=== PATIENT | male | born 1950 | race Caucasian/White ===

== ENCOUNTER 2021-11-10 12:15 | Observation (INO) | payer OTHER ==
--- OUTSIDE RECORDS SUMMARY | 2021-11-10 12:17 | XMS REPORT | Continuity of Care Document ---
:1950 Author Organization [facility] t Address [address] [place] [address] Care Team Providers Name Role Phone Carlos JONES Attending Clinician CARLOS Attending Clinician Unavailable CARLOS Admitting Clinician Unavailable Payers Payer Name Policy Type Policy Number Effective Date Expiration Date S ource Problems Condition Condition Condition Status Onset Resolution Last Treating Co mments Source Name Details Category Date Date Treatment Clinician Date Encounter Encounter Disease Active [facility] [facility] for for 05-26 follow-up follow-up 00:00: of surveillan surveillan 00 Me dicin ce of ce of e prostate prostate cancer cancer Malignant Malignant Disease Active [facility] [place] neoplasm neoplasm 04-13 Colleg e of of 00[facility]00: of prostate prostate 00 [facility] n [facility] e Prostate Prostate Disease Active [facility] cancer cancer 03-21 [facility] 00[facility]: of 00 Medicin e Allergies, Adverse Reactions, Alerts Allergy Allergy Status Severity Reaction(s) Onset Inactive Treating Comm ents Source Name Type Date Date Clinician Hydrocod Propensi Active Nausea And [employer] [facility] one-Acet ty to Vomiting 04-03 Colleg e aminophe adverse 00:00: of n reaction 00 Medicin s to e drug Tramadol Propensi Active Nausea [facility] [employer] [facility] ty to Vomiting 04-03 College adverse 00:00: of reaction 00 Medicin s to e drug Social History Social Habit Start Date Stop Date Quantity Comments Source Exposure to Not sure [facility] e SARS-CoV-2 of Medicine (event) Tobacco use and 2020-11-28 2020-11-28 Never used [facility] [employer] exposure 00:00:00 00:00:00 of Medicine Alcohol intake 2020-11-28 2020-11-28 Current [facility] [employer] 00:00:00 00:00:00 non-drinker of of Medicin e alcohol (finding) Sex Ass[birth year] M [facility] [employer] 00:00:00 00:00:00 of Medicine Smoking Status Start Date Stop Date Source Never smoker [facility] o f Medicine Medications Ordered Filled Start Stop Current Ordering Indication Dosage Frequency Signature Comments Components Source Medication Medication Date Date Medication? Clinician (SIG) Name Name Coenzyme Yes 200mg Take 200 [facility] [facility] Q10 200 MG 3-10 mg by [employer] CAPS 17:16: mouth. of 18 Medicin e pravastatin Yes [id number] 20mg Take 20 mg [facility] (PRAVACHOL) 3-10 by mouth [place] 20 MG 17:16: daily. of tablet 18 Medicin e Coenzyme 2020- No 200mg Take 200 [facility] [place] [facility] Q10 200 MG 3-10 03-10 mg by [employer] CAPS 17:16: 00:00 mouth. of 13 :00 Medicin e Coenzyme 2020- No [id number] Take by [facility] Q10 (CO 3-10 03-10 mouth. College Q-10) 200 17:15: 00:00 of MG CAPS 49 :00 Medicin e etodolac 2020- No TK 1 T PO [facility] (LODINE) 02-06 BID [place] 500 MG 00:00: 00:00 of tablet 00 :00 Medicin e Vital Signs Vital Name Observation Time Observation Value Comments Source Systolic blood 2020-11-28 17:13:00 134 mm[Hg] [facility] pressure Medicine Diastolic blood 2020-11-28 17:13:00 76 mm[Hg] [facility] pressure Medicine Heart rate 2020-11-28 17:13:00 57 /min [facility] Respiratory rate 2020-11-28 17:13:00 18 /min [facility] Body height 2020-11-28 17:13:00 185.4 cm [facility] Body weight 2020-11-28 17:13:00 89.359 kg [facility] BMI 2020-11-28 17:13:00 25.99 kg/m2 [employer] [facility] Procedures Procedure Date / Time Performed Performing Clinician Sour e POCT URINALYSIS 2020-11-28 00:00:00 Geo Baez [facility] [place] of DIPSTICK Medicine Plan of Care Planned Activity Planned Date Details Comments Source Future Scheduled PSA ULTRASENSITIVE Ordered: [employer] Test [code = 18887-1] 11/28/2020 of Medicine Future Scheduled Screening for [facility] [employer] [facility] Test malignant neoplasm of of Med icine colon (procedure) [code = 651814152] Future Scheduled TETANUS SHOT (ADULT) [facility] [employer] Test [code = TETANUS SHOT of Medi cine (ADULT)] Future Scheduled BMI FOLLOW UP PLAN [employer] Test [code = BMI FOLLOW UP of Med icine PLAN] Future Scheduled Hepatitis C screening [employer] Test (procedure) [code = of Medic ine 749255365] Future Scheduled ZOSTER VACCINE (1 of [facility] [employer] Test 2) [code = ZOSTER of Medicin e VACCINE (1 of 2)] Future Scheduled FALL SCREEN [code = [facility] [employer] Test FALL SCREEN] of Medicine Future Scheduled PNEUMOVAX >=65 [facility] [employer] Test (PPSV23) [code = of Medicine PNEUMOVAX >=65 (PPSV23)] Future Scheduled MEDICARE AWV (Initial) [employer] Test [code = MEDICARE AWV of Medi cine (Initial)] Future Scheduled FLU VACCINE > 6 MONTHS [employer] Test [code = FLU VACCINE > of Med icine 6 MONTHS] Encounters Start End Encounter Admission Attending Care Care Encounter Source Date/Time Date/Time Type Type Clinicians Facility Department ID 2020-11-28 2020-11-28 Office ELIZABETH Baez [id number] [facility] 10:50:41 11:05:41 Visit Geo AMBULATOR [id number] College Y [id number] Medi chio 300 e Results Test Description Test Time Test Comments Results Result Comments Source POCT URINALYSIS DIPSTICK 2020-11-28 00:00:00 Test Item Value Reference Range Interpretation Comme nts COLOR UA (test code = 5778-6) Yellow YELLOW/STRAW CLARITY UA (test code = 19999-9) Clear CLEAR GLUCOSE UA (test code = 5792-7) Negative NEGATIVE BILIRUBIN UA (test code = 5770-3) Negative NEGATIVE KETONES UA (test code = 19345-4) Negative NEGATIVE SPECIFIC GRAVITY UA (test code = 5811-5) 1.005-1.035 BLOOD UA (test code = 5794-3) Negative NEGATIVE PH UA (test code = 5803-2) 5.0-9.0 PROTEIN UA (test code = 5804-0) Trace NEGATIVE UROBILINOGEN UA (test code = 5818-0) 0.02 E.U/DL NORMAL MG/DL LEUKOCYTE ESTERASE UA (test code = 5799-2) Negative NEGATIVE NITRITE UA (test code = 5802-4) Negative NEGATIVE REDUCING SUBSTANCES URINE (test code = 35611-2) [id number] 18:27:00Surgical Pathology Report Case: [id number] Authorizing Provider: Geo Baez MD Collected: 04/13/2017 1432 Ordering Location: [facility] Received: 04/13/2017 1827 SERVICES Pathologist: Trenton Caldwell MD Specimens: A) -Lymph Node, PERIPROSTATIC LYMPH NODES B) - Soft Tissue, Other, LEFT LATERAL PROSTATE MARGIN C) - Vas De ferens, Left, LEFT VAS DEFERENS D) - Lymph Node, LEFT EXTERNAL ILIAC LYMPH NODES E) - Lymph Node,left obturator F) - Lymph Node, left hypogastric G) - Lymph Node, Right vas deferens H) - Lymph Node, Right external iliac lymph node I) - Lymph Node, Right obturator J) - Lymph Node, Right hypogastric K) - Prostate, prostate and seminal vesicle A. SOFT TISSUE, RECEIVED "PERIPROSTATIC LYMPH NODES", EXCISION: - BENIGN FIBROADIPOSE TISSUE - NO LYMPHOID TISSUE IDENTIFIEDB. PROSTATE, LEFT LATERAL MARGIN, BIOPSY: - BENIGN FIBROCONNECTIVE TISSUE - NO PROSTATIC GLANDS OR MALIGNANCYSEENC. VAS DEFERENS, LEFT, VASECTOMY: - NO PATHOLOGIC CHANGED. LYMPH NODE, LEFT EXTERNAL ILIAC, EXCISION: - ONE LYMPH NODE, NEGATIVE FOR MALIGNANCY (0/1)E. LYMPH NODE, LEFT OBTURATOR, EXCISION: - ONE LYMPH NODE, NEGATIVE FOR MALIGNANCY (0/1)F. SOFT TISSUE, RECEIVED "LEFT HYPOGASTRIC LYMPH NODES", EXCISION: - BENIGN FIBROADIPOSE TISSUE - NO LYMPHOID TISSUE IDENTIFIEDG. VAS DEFERENS, RIGHT, VASECTOMY: - NO PATHOLOGIC CHANGEH. LYMPH NODES, RIGHT EXTERNAL ILIAC, DISSECTION: - TWO LYMPH NODES, NEGATIVE FOR MALIGNANCY (0/2)I. LYMPH NODES, RIGHT OBTURATOR, DISSECTION: - THREE LYMPH NODES, NEGATIVE FOR MALIGNANCY (0/3)J. SOFT TISSUE, RECEIVED "RIGHT HYPOGASTRIC LYMPH NODES", EXCISION: - BENIGN FIBROADIPOSE TISSUE - NO LYMPHOID TISSUE IDENTIFIEDK. 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 About 30% of this tumor is Jonh pattern 4. There is a smaller a better differentiated tumor in the left peripheralzone as well. Good preservation of the neurovascular bundles is noted from examination of the surgical specimen.PROSTATE GLAND: Radical Prostatectomy (Prostate Res - All Specimens) Specimen Site: Prostatic structure Tumor Site: Prostatic structureSPECIMEN Procedure: Radical prostatectomy Prostate Size: Size (cm): 3.4 cm Size (cm): 4.5 cm Size (cm): 3 cm Prostate Weight: Specify Weight (g): 43 Lymph Node Sampling: Pelvic lymph node dissectionTUMOR Histologic Type: Adenocarcinoma (acinar, not otherwise specified) [place] Pattern: Jonh pattern Primary Pattern: Grade 3 Secondary Pattern: Grade 4 Tertiary Pattern: Not applicable Total Jonh Score: 7 Tumor Quantitation: Proportion (percentage) of Prostate Involved by Tumor Specify (%): 10 Tumor Quantitation: Tumor size (dominant nodule, if present) Greatest Dimension (mm): 15 mm Extraprostatic Extension: Not identified Seminal Vesicle Invasion (invasion of muscular wall required): Not identified Lymph-Vascular Invasion: Not Identified Perineural Invasion: Present TreatmentEffect: Not identifiedMARGINS Margins: Margins uninvolved by invasive carcinomaLYMPH NODESRegional Lymph Nodes: Number of Lymph Nodes Examined: Specify number: 7 Number of Lymph Nodes Involved: None identifiedSTAGE (pTNM) Primary Tumor (pT): +pT2c: Bilateral diseaseRegional Lymph Nodes (pN): pN0: No regional lymph node metastasis Distant Metastasis (pM): Not applicableADDITIONAL FINDINGS Additional Pathologic Findings: Nodular prostatic ermoavqwgnf22591 x2, 30656 x4, 57467 x4, 41761, 96172Jcecswja cancerA. Periprostatic lymph node; B. Left lateral prostate margin; C. Left vas deferens; D. Left external iliac lymph node; E. Left obturator lymph node; F. Left hypogastric lymph node; G. Right vas deferens; H. Right external iliac lymph node; I. Rightobturator lymph node; J. Right hypogastric lymph node; K. Prostate and seminal vesicleSpecimen A: Received fresh labeled "lymph node", description "periprostatic lymph node" are two irregular yellow-aquino portions of adipose tissue measuring 3.5 x 3.0 x 1.0 cm in aggregate. Sectioning reveals no distinct lymph node. The specimen is entirely submitted in cassette A1-A3. DB/plSpecimen B: Received fresh without formalin labeled with the patient's name, medical record number, [id number], and consists of twotiny aquino-pink soft tissue pieces. Entirely submitted in B1FS. SD/plSpecimen C: Received fresh labeled "vas deferens, left" is a 1.5 cm in length x 0.2 cm in diameter diaz-white cylindrical tubular structure. The specimen is entirely submitted in cassette C1. Specimen D: Received fresh labeled "left external iliac lymph node" is a 4.0 x 1.5 x 0.2 cm pink-aquino to yellow irregular lymph node with adherent adipose tissue. The specimen is serially sectioned and entirely submitted in cassettes D1-D4. Specimen E: Received fresh labeled "lymph node", description "left obturator" is a 3.0 x 2.5 x 1.0 cm aggregate of yellow-aquino adipose tissue. Sectioning reveals no distinct lymph node. The specimen is entirely submitted in cassettes E1-E3. Specimen F: Received fresh labeled "lymph node", description "left hypogastric" is a 3.3 x 2.2 x 1.0 cm yellow-aquino irregular portion of adipose tissue. Sectioning reveals no distinct lymph nodes. The specimen is entirely submitted in cassettes F1-f2. Specimen G: Received fresh labeled "right vas deferens" is a 2.3 cm in length x 0.3 cm in diameter diaz-white cylindrical tubular structure. The specimen is entirely submitted in cassette G1.Specimen H: Received fresh labeled "lymph node", description "right external iliac lymph node" is a 4.5 x 3.3 x 1.0 cm aggregate ofyellow-aquino adipose tissue. Sectioning reveals two pink-aquino to yellow possible lymph nodes measuring 2.0 cm and 3.0 cm in greatest dimension. The specimen is entirely submitted as follows: H1, one bisected lymph node; H2-H3, one bisected lymph node; H4-H5, remainder of specimen.Specimen I: Received fresh labeled "lymph node", description "right obturator" is a 5.0 x 3.5 x 1.0 cm yellow-aquino irregular portion of adipose tissue. Sectioning reveals a 3.5 x 1.0 x 0.5 cm pink-aquino to yellow irregular lymph node. The specimen is entirely submitted as follows: I1-I2, one bisected lymph node; I3-I6, remainderof specimen. Specimen J: Received fresh labeled "lymph node", description "right hypogastric" is a 3.5 x 3.0 x 0.5 cm yellow-aquino irregular portion of adipose tissue. Sectioning reveals no distinct lymph node. The specimen is entirely submitted in cassettes J1-J2. DB/plSpecimen K: Received fresh labeled "prostate" is a radical prostatectomy specimen with attached bilateral seminal vesicles and vasa deferentia. The prostate weighs 43 gm and measures 3.4 cm apex to base, 4.5 cm transversely and 3.0 cm anterior to posterior. The right and left seminal vesicles measure 4.5 x 1.4 x 0.5 cm and 3.2 x 1.0 x0.5 cm respectively. The right and left vasa deferentia measure 4.0 cm and 5.0 Cm in length respectively and 0.5 cm in diameter.The capsular surface of the prostate is purple-aquino to red, dusky, focallyragged.Ink code: Right- black, left-blue.The prostate is serially sectioned from apex to base into 9 s lices to reveal pink-aquino to diaz-white, homogeneous, focally nodular prostatic parenchyma throughout. No discrete masses are identified. The prostate gland is entirely submitted.Sectioning of the seminal vesicles reveals a pink-aquino unremarkable cut surface.Section code: K1, prostate apex; K2, prostatebase; K3- K7, prostate slices sequentially submitted progressing from apex to base; K8, right and left seminal vesicles; K9, seminal vesicle tips. DB/ewB1FS, LEFT LATERAL MARGIN, PROSTATE: - NO GLAND SEEN - NO TUMOR SEEN - THIS WAS COMMUNICATED TO OR18 BY DR. THORNE ON 04/06/2017 AT 6:40 P.M. A-K. Performed. BASIC METABOLIC [id number] 06:32:00 Test Item Value Reference Range Interpretation Comments SODIUM (BEAKER) 137 meq/L 136-145 (test code = 381) POTASSIUM (BEAKER) 4.2 meq/L 3.5-5.1 (test code = 379) CHLORIDE (BEAKER) 106 meq/L 98-107 (test code = 382) CO2 (BEAKER) (test 25 meq/L 22-29 code = 355) BLOOD UREA NITROGEN 11 mg/dL 7-21 (BEAKER) (test code = 354) CREATININE (BEAKER) 0.69 mg/dL 0.57-1.25 (test code = 358) GLUCOSE RANDOM 118 mg/dL 70-105 H (BEAKER) (test code = 652) CALCIUM (BEAKER) 7.8 mg/dL 8.4-10.2 L (test code = 697) EGFR (BEAKER) (test 114 mL/min/1.73 ESTIM ATED GFR IS code = 1092) sq m NOT ACCURATE CREATININE CLEARANCE IN PREDICTING GLOMERULAR FILTRATION RATE . ESTIMATED GFR I S NOT APPLICABLE FOR DIALYSIS PATIEN TS. CREATININE, BODY [id number] 06:09:00 Test Item Value Reference Range Interpretation Comments CREATININE FLUID (BEAKER) (test 0.68 mg/dL code = 677) Reference Range: No Normals Assay performance has not been validated for this type of specimen.CBC W/PLT COUNT & AUTO [id number] 06:02:00 Test Item Value Reference Range Interpretation Comments WHITE BLOOD CELL COUNT (BEAKER) 9.9 K/ L 3.5-10.5 (test code = 775) RED BLOOD CELL COUNT (BEAKER) 3.80 M/ L 4.63-6.08 L (test code = 761) HEMOGLOBIN (BEAKER) (test code = 12.1 GM/DL 13.7-17.5 L 410) HEMATOCRIT (BEAKER) (test code = 36.4 % 40.1-51.0 L 411) MEAN CORPUSCULAR VOLUME (BEAKER) 95.8 fL 79.0-92.2 H (test code = 753) MEAN CORPUSCULAR HEMOGLOBIN 31.8 pg 25.7-32.2 (BEAKER) (test code = 751) MEAN CORPUSCULAR HEMOGLOBIN CONC 33.2 GM/DL 32.3-36.5 (BEAKER) (test code = 752) RED CELL DISTRIBUTION WIDTH 13.1 % 11.6-14.4 (BEAKER) (test code = 412) PLATELET COUNT (BEAKER) (test 164 K/CU MM 150-450 code = 756) MEAN PLATELET VOLUME (BEAKER) 9.2 fL 9.4-12.4 L (test code = 754) NUCLEATED RED BLOOD CELLS 0 /100 WBC 0-0 (BEAKER) (test code = 413) NEUTROPHILS RELATIVE PERCENT 85 % (BEAKER) (test code = 429) LYMPHOCYTES RELATIVE PERCENT 8 % (BEAKER) (test code = 430) MONOCYTES RELATIVE PERCENT 7 % (BEAKER) (test code = 431) EOSINOPHILS RELATIVE PERCENT 0 % (BEAKER) (test code = 432) BASOPHILS RELATIVE PERCENT 0 % (BEAKER) (test code = 437) NEUTROPHILS ABSOLUTE COUNT 8.37 K/ L 1.78-5.38 H (BEAKER) (test code = 670) LYMPHOCYTES ABSOLUTE COUNT 0.78 K/ L 1.32-3.57 L (BEAKER) (test code = 414) MONOCYTES ABSOLUTE COUNT (BEAKER) 0.64 K/ L 0.30-0.82 (test code = 415) EOSINOPHILS ABSOLUTE COUNT 0.02 K/ L 0.04-0.54 L (BEAKER) (test code = 416) BASOPHILS ABSOLUTE COUNT (BEAKER) 0.02 K/ L 0.01-0.08 (test code = 417) IMMATURE GRANULOCYTES-RELATIVE 0 % 0-1 PERCENT (BEAKER) (test code = 2801) BASIC METABOLIC [id number] 02:30:00 Test Item Value Reference Range Interpretation Comments SODIUM (BEAKER) 138 meq/L 136-145 (test code = 381) POTASSIUM (BEAKER) 4.5 meq/L 3.5-5.1 (test code = 379) CHLORIDE (BEAKER) 109 meq/L 98-107 H (test code = 382) CO2 (BEAKER) (test 22 meq/L 22-29 code = 355) BLOOD UREA NITROGEN 18 mg/dL 7-21 (BEAKER) (test code = 354) CREATININE (BEAKER) 0.85 mg/dL 0.57-1.25 (test code = 358) GLUCOSE RANDOM 159 mg/dL 70-105 H (BEAKER) (test code = 652) CALCIUM (BEAKER) 7.6 mg/dL 8.4-10.2 L (test code = 697) EGFR (BEAKER) (test 90 mL/min/1.73 ESTIMA ILENE GFR IS code = 1092) sq m NOT ACCURATE CREATININE CLEARANCE IN PREDICTING GLOMERULAR FILTRATION RATE . ESTIMATED GFR I S NOT APPLICABLE FOR DIALYSIS PATIEN TS. [facility] [id number] 01:42:00 Test Item Value Reference Range Interpretation Comments HEMOGLOBIN (BEAKER) (test code = 11.6 GM/DL 13.7-17.5 L 410) HEMATOCRIT (BEAKER) (test code = 34.8 % 40.1-51.0 L 411) SODIUM NA-STAT [id number] 19:29:00 Test Item Value Reference Range Interpretation Comments SODIUM (BEAKER) (test code = 381) 139 meq/L 135-148 POTASSIUM-STAT [id number] 19:29:00 Test Item Value Reference Range Interpretation Comments POTASSIUM (BEAKER) (test code = 3.9 meq/L 3.6-5.5 379) BLOOD GAS, [id number] 19:29:00 Test Item Value Reference Range Interpretation Comments PH ARTERIAL (BEAKER) (test code = 7.32 7.35-7.45 L 383) PCO2 ARTERIAL (BEAKER) (test code 45 mmHg 35-45 = 384) PO2 ARTERIAL (BEAKER) (test code 194 mmHg 80-90 H = 385) O2 SATURATION ARTERIAL (BEAKER) 99.2 % 96.0-97.0 H (test code = 386) HCO3 ARTERIAL (BEAKER) (test code 23 mmol/L 21-29 = 388) BASE EXCESS ARTERIAL (BEAKER) -3.7 mmol/L -2.0-3.0 L (test code = 387) PATIENT TEMPERATURE (BEAKER) 36.6 C (test code = 1818) FIO2 (BEAKER) (test code = 1819) 50.0 % GLUCOSE-STAT [id number] 19:29:00 Test Item Value Reference Range Interpretation Comments GLUCOSE RANDOM (BEAKER) (test code 167 mg/dL 70-110 H = 652) HGB/HCT (H&H) - STAT [id number] 19:29:00 Test Item Value Reference Range Interpretation Comments HEMOGLOBIN (BEAKER) (test code = 11.7 g/dL 13.0-16.8 L 410) HEMATOCRIT (BEAKER) (test code = 34.0 % 40.0-50.0 L 411) URINALYSIS W/ [id number] 11:39:00 Test Item Value Reference Range Interpretation Comments COLOR (BEAKER) (test code Yellow = 470) CLARITY (BEAKER) (test Clear code = 469) SPECIFIC GRAVITY UA 1.011 1.001-1.035 (BEAKER) (test code = 468) PH UA (BEAKER) (test code 7.0 5.0-8.0 = 467) PROTEIN UA (BEAKER) (test Negative Negative code = 464) GLUCOSE UA (BEAKER) (test Negative Negative code = 365) KETONES UA (BEAKER) (test Negative Negative code = 371) BILIRUBIN UA (BEAKER) Negative Negative (test code = 462) BLOOD UA (BEAKER) (test Negative Negative code = 461) NITRITE UA (BEAKER) (test Negative Negative code = 465) LEUKOCYTE ESTERASE UA Negative Negative (BEAKER) (test code = 466) UROBILINOGEN UA (BEAKER) 0.2 mg/dL 0.2-1.0 (test code = 463) RBC UA (BEAKER) (test code < /HPF = 519) WBC UA (BEAKER) (test code 1 /HPF = 520) SOURCE(BEAKER) (test code Urine, Clean Catch = 9937) PLATELET [id number] 10:54:00 Test Item Value Reference Range Interpretation Comments PLATELET COUNT (BEAKER) (test 195 K/CU MM 150-450 code = 756) [id number] 16:26:00 Test Item Value Reference Range Interpretation Comments HEMOGLOBIN (BEAKER) (test code = 13.6 GM/DL 13.0-16.8 410) PLATELET [id number] 16:26:00 Test Item Value Reference Range Interpretation Comments PLATELET COUNT (BEAKER) (test 202 K/CU MM 150-430 code = 756)
[2021-11-10 12:53] LABS: Absolute Lymphocytes (CBC) 0.9 K/uL (0.7-4.9); Hematocrit 42.9 % (39.6-49.0); Lymphocytes % 25.6 % (15.3-44.8); MPV 7.9 fL (7.6-11.3); RBC Red Blood Cell Count 4.52 M/uL (4.33-5.43)
[2021-11-10 12:54] LABS: Protime INR 1.03
--- NOTE | 2021-11-10 13:15 | RAD REPORT ---
EXAM DESCRIPTION: CT - Head Brain Wo Cont - 11/10/2021 12:55 pm CLINICAL HISTORY: Dizziness COMPARISON: None TECHNIQUE: Computed axial tomography of the head was obtained. IV contrast was not requested. All CT scans are performed using dose optimization technique as appropriate and may include automated exposure control or mA/KV adjustment according to patient size. FINDINGS: An intracranial bleed is not seen . The ventricles are normal in caliber. No extra-axial fluid collection is noted. Fluid within the sinuses/ mastoids is not seen. IMPRESSION: No acute intracranial abnormality is seen. If patient's symptoms persist MRI of the bra in would be recommended.
--- NOTE | 2021-11-10 13:21 | RAD REPORT ---
EXAM DESCRIPTION: Janel Single View11/10/2021 1:07 pm CLINICAL HISTORY: Dizziness COMPARISON: 2020 FINDINGS: Lungs are hyperaerated. The lungs appear clear of acute infiltrate. The heart is normal size IMPRESSION: No acute abnormalities displayed
[2021-11-10 13:22] LABS: Albumin 3.7 g/dL (3.4-5.0); Bilirubin Direct 0.2 mg/dL (0-0.2); Bilirubin Total 0.9 mg/dL (0.2-1.0); Potassium 3.9 mmol/L (3.5-5.1); Protein, Total 7.1 g/dL (6.4-8.2)
[2021-11-10] MEDS ORDERED: HEPARIN/D5W 25,000 UNIT/500 ML BAG IV ONE (15:06)
[2021-11-10] MEDS ORDERED: HEPARIN 5000 UNIT/ML 1 ML VIAL ONE (15:06)
--- NOTE | 2021-11-10 15:30 | EDPHYS ---
Physician Documentation [facility] Name: Ag Burnham Age: 71 yrs Sex: Male : 1950 Arrival Date: 11/10/2021 Time: 12:32 Bed 18 Private MD: ED Physician Dominik Edwards HPI: 11/10 12:46 This 71 yrs old Male presents to ER via EMS with complaints of dizziness. pm1 12:46 The patient has experienced near-syncope, felt dizzy, light headed. Onset: The pm1 symptoms/episode began/occurred just prior to arrival, 1 hour prior to arrival. Duration: This was a single episode, that lasted 1 hour(s). Context: occurred Sabianism, occurred while the patient was standing, Just prior to the episode the patient experienced no apparent symptoms. Associated injury: The patient did not suffer any apparent associated injury. Associated signs and symptoms: Pertinent positives: Nausea with vomiting x 1. Diaphoresis on EMS arrival, Pertinent negatives: chest pain, headache, shortness of breath. Current symptoms: Currently, the patient is not experiencing any symptoms, the patient feels back to baseline, improved with lying down and worsened with change in position. The patient has not experienced similar symptoms in the past. The patient has not recently seen a physician, the patient's primary care provider is Dr. Husain. 12:46 Patient given aspirin and Phenergan in route. pm1 Historical: - Allergies: 12:59 No Known Allergies; lr4 - Home Meds: 12:59 pravastatin 20 mg oral tab 1 tab once daily [Active]; lr4 - PMHx: 12:59 Hypercholesterolemia; lr4 - PSHx: 12:59 None; lr4 - Immunization history:: Adult Immunizations not up to date, Client reports receiving the 2nd dose of the Covid vaccine, Date received: July 2021 booster covid shot. - Social history:: Smoking status: Patient denies any tobacco usage or history of. - Code Status:: Full code. ROS: 12:46 Constitutional: Negative for fever, chills, and weight loss, Cardiovascular: Negative pm1 for chest pain, palpitations, and edema, Respiratory: Negative for shortness of breath, cough, wheezing, and pleuritic chest pain. 12:46 Back: Negative for injury and pain, MS/Extremity: Negative for injury and deformity, Skin: Negative for injury, rash, and discoloration. 12:46 Abdomen/GI: Positive for nausea and vomiting, Negative for abdominal pain, diarrhea. 12:46 Neuro: Positive for dizziness, Negative for headache, numbness, tingling, weakness. 12:46 All other systems are negative. Exam: 12:46 Abdomen/GI: Exam negative for acute changes, Palpation: abdomen is soft and non-tender, pm1 in all quadrants. 12:46 Constitutional: This is a well developed, well nourished patient who is awake, alert, and in no acute distress. Head/Face: Normocephalic, atraumatic. 12:46 Skin: Warm, dry with normal turgor. Normal color with no rashes, no lesions, and no evidence of cellulitis. MS/ Extremity: Pulses equal, no cyanosis. Neurovascular intact. Full, normal range of motion. 12:46 Eyes: Exam is negative for acute changes, Periorbital structures: appear normal, Extraocular movements: no acute changes, Conjunctiva: no acute changes, no injection. 12:46 ENT: Mouth: Lips: normal, moist, Oral mucosa: normal, pink and intact, moist. 12:46 Chest/axilla: Exam negative for acute changes. 12:46 Cardiovascular: Rate: bradycardic, Rhythm: regular, Pulses: no pulse deficits are appreciated, Heart sounds: normal, normal S1and S2, Edema: is not appreciated. 12:46 Respiratory: Exam negative for acute changes, respiratory distress, shortness of breath, Breath sounds: are clear throughout. 12:46 Neuro: Orientation: is normal, Mentation: is normal, Cranial nerves: CN II- XII are normal as tested, Cerebellar function: normal finger to nose testing, heel to hermosillo testing is normal, Motor: moves all fours, strength is 5/5 in all extremities, Sensation: no obvious gross deficits. Vital Signs: 12:30 BP 141 / 84; Pulse 61; Resp 16; Temp 97.9(O); Pulse Ox 99% on R/A; Weight 83.01 kg; lr4 Height 6 ft. 0 in. (182.88 cm); Pain 0/10; 12:30 BP 136 / 83 Supine; Pulse 60; Resp 16; Pulse Ox 98% on R/A; lr4 12:33 BP 140 / 105 Sitting; Pulse 61; Pulse Ox 98% on R/A; lr4 12:37 BP 143 / 74 Standing; Pulse 72; Resp 17; Pulse Ox 100% on R/A; lr4 13:20 BP 126 / 74; Pulse 58; Resp 14; Pulse Ox 58% ; lr4 15:38 BP 128 / 76; Pulse 59; Resp 14; Pulse Ox 98% ; ww 12:30 Body Mass Index 24.82 (83.01 kg, 182.88 cm) lr4 Cassy Coma Score: 12:30 Eye Response: spontaneous(4). Verbal Response: oriented(5). Motor Response: obeys lr4 commands(6). Total: 15. MDM: 12:38 Patient medically screened. pm1 14:34 Data reviewed: vital signs. Data interpreted: Pulse oximetry: on room air is 100 %. pm1 Interpretation: normal. Counseling: I had a detailed discussion with the patient and/or guardian regarding: the historical points, exam findings, and any diagnostic results supporting the discharge/admit diagnosis, lab results, radiology results, the need for further work-up and treatment in the hospital. 14:47 Physician consultation: Chapin Husain MD regarding admission, patient's condition, would like pm1 consultation with Dr. Welsh, would like medications started, heparin. 15:07 Physician consultation: Jayro Welsh MD regarding consult, patient's condition, and pm1 will see patient tomorrow, would like further tests performed, carotid doppler studies, echocardiogram, agrees with heparin drip. 15:12 Physician consultation: Chapin Husain MD regarding consultation with Dr. Welsh. Dr. Husain pm1 would like repeat troponin now and to be called back with the results. 16:57 ED course: Left message with Dr Husain for repeat troponin result. pm1 17:35 ED course: Rodrigue updated on repeat troponin and he would like troponin repeat at 2000 pm1 today and 0500 tomorrow. 11/10 12:39 Order name: Basic Metabolic Panel; Complete Time: 14:06 pm1 11/10 12:39 Order name: CBC with Diff; Complete Time: 13:07 pm1 11/10 12:39 Order name: LFT's; Complete Time: 14:06 pm1 11/10 12:39 Order name: Magnesium; Complete Time: 14:06 pm1 11/10 12:39 Order name: NT PRO-BNP; Complete Time: 14:06 pm1 11/10 12:39 Order name: PT-INR; Complete Time: 13:07 pm1 11/10 12:39 Order name: Troponin HS; Complete Time: 14:06 pm1 11/10 12:46 Order name: Glucose, Ancillary Testing; Complete Time: 13:07 EDMS 11/10 14:36 Order name: SARS-COV-2 RT PCR; Complete Time: 16:13 EDMS 11/10 15:09 Order name: Ptt, Activated ss7 11/10 15:09 Order name: PTT, Activated Partial Thromb; Complete Time: 15:30 EDMS 11/10 15:12 Order name: Troponin High Sensitivity pm1 11/10 15:12 Order name: Troponin High Sensitivity; Complete Time: 16:27 EDMS 11/10 12:39 Order name: XRAY Chest (1 view); Complete Time: 13:29 pm1 11/10 12:39 Order name: EKG; Complete Time: 12:40 pm1 11/10 12:39 Order name: Cardiac monitoring; Complete Time: 12:48 pm1 11/10 12:39 Order name: EKG - Nurse/Tech; Complete Time: 12:48 pm1 11/10 12:39 Order name: IV Saline Lock; Complete Time: 12:48 pm1 11/10 12:39 Order name: Labs collected and sent; Complete Time: 12:48 pm1 11/10 12:39 Order name: O2 Per Protocol; Complete Time: 12:48 pm1 11/10 12:39 Order name: O2 Sat Monitoring; Complete Time: 12:49 pm1 11/10 12:39 Order name: CT Head Brain wo Cont; Complete Time: 13:29 pm1 11/10 15:33 Order name: CONS Physician Consult; Complete Time: 16:15 EDMS 11/10 19:54 Order name: US EDMS 11/10 20:23 Order name: Troponin High Sensitivity EDMS Administered Medications: 15:20 Drug: Heparin (NV-Bolus No thrombolytic) - HEParin 60 units/kg {Co-Signature: ss7 hoa (Lana Osei RN).} Route: IVP; Site: right antecubital; 15:40 Follow up: Response: No adverse reaction hoa 15:25 Drug: Heparin (NV Drip) 12 units/kg/hr - (HEParin 51370 units, D5W 500 ml) ww {Co-Signature: ss7 (Lana Osei RN).} Route: IV; Rate: calculated rate; Site: right antecubital; 15:40 Follow up: IV Status: Infusion continued ww Disposition Summary: 11/10/21 15:29 Hospitalization Ordered Hospitalization Status: Inpatient Admission pm1 Provider: Chapin Husain pm1 Condition: Stable pm1 Problem: new pm1 Symptoms: have improved pm1 Bed/Room Type: Standard pm1 Location: Telemetry/MedSurg (Inpatient)(11/10/21 19:55) Room Assignment: 230(11/10/21 19:55) cg Diagnosis - Syncope Near pm1 - Elevated troponin pm1 Forms: - Medication Reconciliation Form pm1 - SBAR form pm1 Addendum: 11/13/2021 23:14 Co-signature as Attending Physician, Dominik Edwards MD I agree with the assessment and r n plan of care. Attestation: The patient's history, exam findings, diagnostics, and a summary of any interventions or procedures was reviewed in detail with Alphonse Brennan AIRPLANE WOODWORKER. Signatures: Dispatcher [employer] [facility] Dominik Edwards MD MD rn Joey, [facility] em1 Gila Rowe RN RN Alphonse Brennan NP AIRPLANE WOODWORKER pm1 Sasha Cherry RN RN ww Ginger Floyd RN RN lr4 Lana Osei RN ss7 Corrections: (The following items were deleted from the chart) 11/10 14:39 14:36 SARS-COV-2 RT PCR+MOL.LAB.BRZ ordered. EDAR EDAR 15:46 15:29 Telemetry/MedSurg (Inpatient) pm1 em1 15:46 15:29 pm1 em1 19:55 15:46 [facility] ER HOLD em1 cg 19:55 15:46 ERHOLD- em1 cg
--- NOTE | 2021-11-10 15:30 | ER ---
Nurse's Notes [facility] Name: Ag Burnham Age: 71 yrs Sex: Male : 1950 Arrival Date: 11/10/2021 Time: 12:32 Bed 18 Private MD: Diagnosis: Syncope Near;Elevated troponin Presentation: 11/10 12:30 Chief complaint: Patient states: Pt bib by ems from [facility]. 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 EMS reports that pt was diaphoretic initially and bp tilted from when he stood up and sat down. En route pt had 1 episode of vomiting ( watery emesis), pt was given 12.5 of promethazine and approx 75cc of ns en route. 12 Lead was also unremarkable en route. Coronavirus screen: Vaccine status: Patient reports receiving the 2nd dose of the covid vaccine. Date November 23, 2020. Ebola Screen: Patient negative for fever greater than or equal to 101.5 degrees Fahrenheit, and additional compatible Ebola Virus Disease symptoms. 12:30 Method Of Arrival: EMS: [facility] lr4 12:30 Initial Sepsis Screen: Does the patient meet any 2 criteria? No. Patient's initial lr4 sepsis screen is negative. Does the patient have a suspected source of infection? Yes: No. Patient's initial sepsis screen is negative. Risk Assessment: Do you want to hurt yourself or someone else? Patient reports no desire to harm self or others. Onset of symptoms was November 10, 2020. 12:30 Acuity: PATY 2 lr4 Triage Assessment: 12:59 General: Appears in no apparent distress. comfortable, well groomed, well developed, lr4 well nourished, Behavior is calm, cooperative. Pain: Denies pain. Neuro: No deficits noted. Cardiovascular: No deficits noted. Respiratory: No deficits noted. Musculoskeletal: No deficits noted. Historical: - Allergies: 12:59 No Known Allergies; lr4 - Home Meds: 12:59 pravastatin 20 mg oral tab 1 tab once daily [Active]; lr4 - PMHx: 12:59 Hypercholesterolemia; lr4 - PSHx: 12:59 None; lr4 - Immunization history:: Adult Immunizations not up to date, Client reports receiving the 2nd dose of the Covid vaccine, Date received: July 2021 booster covid shot. - Social history:: Smoking status: Patient denies any tobacco usage or history of. - Code Status:: Full code. Screenin:08 Abuse screen: Denies threats or abuse. Nutritional screening: No deficits noted. lr4 Tuberculosis screening: No symptoms or risk factors identified. Fall Risk IV access (20 points). Total Oliva Fall Scale indicates No Risk (0-24 pts). Assessment: 13:03 Reassessment: No changes from previously documented assessment. Patient is alert, lr4 oriented x 3, equal unlabored respirations, skin warm/dry/pink. Patient states feeling better. Vital Signs: 12:30 BP 141 / 84; Pulse 61; Resp 16; Temp 97.9(O); Pulse Ox 99% on R/A; Weight 83.01 kg; lr4 Height 6 ft. 0 in. (182.88 cm); Pain 0/10; 12:30 BP 136 / 83 Supine; Pulse 60; Resp 16; Pulse Ox 98% on R/A; lr4 12:33 BP 140 / 105 Sitting; Pulse 61; Pulse Ox 98% on R/A; lr4 12:37 BP 143 / 74 Standing; Pulse 72; Resp 17; Pulse Ox 100% on R/A; lr4 13:20 BP 126 / 74; Pulse 58; Resp 14; Pulse Ox 58% ; lr4 15:38 BP 128 / 76; Pulse 59; Resp 14; Pulse Ox 98% ; ww 12:30 Body Mass Index 24.82 (83.01 kg, 182.88 cm) lr4 Vitals: 13:08 Cardiac Rhythm Assessment Regular Sinus ashtyn. lr4 Cassy Coma Score: 12:30 Eye Response: spontaneous(4). Verbal Response: oriented(5). Motor Response: obeys lr4 commands(6). Total: 15. ED Course: 12:32 Patient arrived in ED. em1 12:33 Alphonse Brennan NP is PHCP. pm1 12:33 Dominik Edwards MD is Attending Physician. pm1 12:42 EKG done, by ED staff, Blood glucose was 120 upon arrival. lr4 12:42 No provider procedures requiring assistance completed. lr4 12:49 Basic Metabolic Panel Sent. ss7 12:49 CBC with Diff Sent. ss7 12:49 LFT's Sent. ss7 12:49 Magnesium Sent. ss7 12:49 NT PRO-BNP Sent. ss7 12:49 PT-INR Sent. ss7 12:49 Troponin HS Sent. ss7 12:49 Inserted saline lock: 18 gauge in right antecubital area, using aseptic technique. lr4 started port captain by EMS. 12:50 CT Head Brain wo Cont Sent. lr4 12:50 Basic Metabolic Panel Sent. lr4 12:50 CBC with Diff Sent. lr4 12:50 LFT's Sent. lr4 12:51 Magnesium Sent. lr4 12:51 NT PRO-BNP Sent. lr4 12:51 Troponin HS Sent. lr4 12:55 CT Head Brain wo Cont In Process Unspecified. EDMS 12:59 Triage completed. lr4 13:07 XRAY Chest (1 view) In Process Unspecified. EDMS 13:10 No apparent distress. lr4 13:11 Arm band placed on right wrist. lr4 13:12 Patient has correct armband on for positive identification. Bed in low position. Call lr4 light in reach. Side rails up X2. Adult w/ patient. Door closed. Warm blanket given. 13:30 Notified Nurse Practitioner and/or Physician Dining Room Supervisor of a critical lab result(s), HS ll1 troponin 63. 14:46 SARS-COV-2 RT PCR Sent. ss7 15:16 Ptt, Activated Sent. ss7 15:29 Chapin Husain MD is Hospitalizing Provider. pm1 15:30 Sasha Cherry, RN is Primary Nurse. ww 15:36 Troponin High Sensitivity Sent. ww 20:27 Troponin - 62.40. tk1 Administered Medications: 15:20 Drug: Heparin (LA-Bolus No thrombolytic) - HEParin 60 units/kg {Co-Signature: ss7 ww (Lana Osei RN).} Route: IVP; Site: right antecubital; 15:40 Follow up: Response: No adverse reaction ww 15:25 Drug: Heparin (LA Drip) 12 units/kg/hr - (HEParin 14985 units, D5W 500 ml) ww {Co-Signature: ss7 (Lana Osei RN).} Route: IV; Rate: calculated rate; Site: right antecubital; 15:40 Follow up: IV Status: Infusion continued ww Outcome: 13:12 Condition: stable lr4 15:29 Decision to Hospitalize by Provider. pm1 21:05 Patient left the ED. tw5 21:08 Admitted to Med/surg accompanied by tech, via wheelchair, room 230, Report called to tk1 ANNELIESE Hemphill Signatures: Dispatcher [employer] Andrew Connolly em1 Alphonse Brennan, IRRIGATING PUMP OPERATOR IRRIGATING PUMP OPERATOR pm1 Carrie Taylor, RN RN ll1 Kayla Cherry tw5 Sasha Cherry RN RN ww Edith Reed tk1 Lana Osei RN RN ss7 Ginger Floyd RN RN lr4 Lana Osei RN ss7
[2021-11-10] MEDS ORDERED: ONDANSETRON 4 MG/2 ML VIAL IV PRN (18:04)
[2021-11-10] MEDS ORDERED: HEPARIN/D5W 25,000 UNIT/500 ML BAG IV SCH (18:04)
[2021-11-10] MEDS ORDERED: MORPHINE 4 MG/ML SYR IV PRN (18:04)
--- NOTE | 2021-11-10 19:53 | RAD REPORT ---
EXAM DESCRIPTION: USCarotid Artery Bilateral11/10/2021 7:37 pm CLINICAL HISTORY: syncope COMPARISON: None FINDINGS: The velocity of the right internal carotid artery equals 111 cm/sec. The right ICA/CCA rat io 1.5 The velocity of the left internal carotid artery equals 96 cm/sec. The left ICA/CCA ratio 1.2 Plaque is not visualized within the carotid arteries The vertebral arteries demonstrate antegrade flow IMPRESSION: Unremarkable exam NASCET criteria used. Mild 0-49% stenosis Moderate 50-69% stenosis Severe 70-99% stenosis
[2021-11-10 23:58] VITALS: BMI 23.7
[2021-11-11 03:21] LABS: Absolute Lymphocytes (CBC) 1.7 K/uL (0.7-4.9); Hematocrit 37.9 % (39.6-49.0); Lymphocytes % 34.9 % (15.3-44.8); MPV 7.8 fL (7.6-11.3); RBC Red Blood Cell Count 4.02 M/uL (4.33-5.43)
[2021-11-11 03:32] LABS: BUN Blood Urea Nitrogen 19 mg/dL (7-18); Bicarbonate 28 mmol/L (21-32); Glucose Level 97 mg/dL (74-106); Sodium Level 143 mmol/L (136-145)
[2021-11-11] MEDS ORDERED: PNEUMOCOCCAL VACCINE 0.5 ML IMVAC ONE (08:00)
[2021-11-11] MEDS ORDERED: INFLUENZA VACCINE (for 6+ mo) 0.5 ML DOSE IMVAC ONE (08:00)
[2021-11-11] MEDS ORDERED: NA CHLORIDE 0.9% 500 ML ONE (08:52)
[2021-11-11] MEDS ORDERED: ASPIRIN EC 81 MG TAB PO SCH (09:00)
[2021-11-11] MEDS ORDERED: FENTANYL CITR 100 MCG/2 ML ONE (09:11)
[2021-11-11] MEDS ORDERED: MIDAZOLAM HCL 2 MG/2 ML INJ ONE ×2 (09:12→09:46)
[2021-11-11] MEDS ORDERED: NA CHLORIDE 0.9% 0 ML ONE (09:12)
[2021-11-11] MEDS ORDERED: ATROPINE SULF 1 MG/10 ML SYR IV ONE (09:12)
[2021-11-11] MEDS ORDERED: LIDOCAINE 1% 20 ML MDV ONE (09:13)
[2021-11-11] MEDS ORDERED: NITROGLYCERIN 100 MCG/ML SYR (for cath lab use only) IV ONE (09:13)
[2021-11-11] MEDS ORDERED: HEPA 1000U/500MLS 1,000 UNIT/500 ML BAG IV ONE (09:13)
[2021-11-11 10:46] VITALS: O2SAT 97
[2021-11-11 12:09] VITALS: BP 137/74; TEMP 97.7
--- NOTE | 2021-11-11 12:31 | CON ---
Date of Consultation: 11/11/2021 Reason For Consultation: Abnormal troponin and presyncope. History Of Present Illness: Mr. Burnham is a 71-year-old white male without any significant past me dical history. He does not smoke. Does not have a family history of heart disease. He does not hav e hypertension, diabetes, or dyslipidemia. 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 No telemetry changes. Troponin was borderline and we decided to ke ep him overnight and plan a heart catheterization to rule out coronary artery disease. His carotid D oppler was normal. An echocardiogram was normal. Rest of the blood work was normal. Past Medical History: Negative. Allergies: NONE. Review of Systems: Negative. Social History: Unremarkable. Medications: Medications at home are none. Physical Examination: Vital Signs: Stable, afebrile. HEENT: Negative. Neck: Supple with no bruit. Chest: Clear to auscultation and percussion. Cardiac: Revealed a regular rhythm and rate. No murmurs, gallops, or rubs. Abdomen: Benign. Extremities: Revealed no clubbing, cyanosis, or edema. Diagnostic Data: Listed earlier. Impression And Plan: An episode of presyncope with borderline troponin, must rule out coronary arter y disease. Carotid Doppler is negative. Echocardiogram is pending. Case was discussed with the jeniffer ruiz and with Dr. Husain. We will plan to do a heart catheterization today to define his coronary shanell edgar. The patient understands the risks and the benefits of the procedure and he agrees to proceed. It is possible that this may have been orthostatic hypotension or an arrhythmia. Once all this is do ne, I think doing a 7-day event monitor as an outpatient is reasonable. JAY/ALVARO Voice ID: [id number] Report ID: [id number]
--- NOTE | 2021-11-11 12:49 | OP ---
Date of Procedure: 11/11/2021 Surgeon: Jayro Welsh MD [employer] Coxswain: Milady Rowe. The patient brought to the pharmaceutical laboratory technician on 11/11/2021 for left heart catheterization, selective coronary arteriogram. Indication: Presyncope and elevated troponin. Procedure In Detail: In the pharmaceutical laboratory technician, the patient was prepped and draped in the routine sterile fash ion. Given Versed and fentanyl for sedation. A 6-Iraqi sheath introduced in the right common femor al artery successfully. Angiography there was normal. Angio-Seal was used to close the case. JudStopTheHacker ns catheter left and right were used to cannulate the left main and right main respectively. His cor onaries were perfectly normal. He had a normal RCA. Normal left main, circumflex, and LAD. The pat ient tolerated the procedure well. There were no complications. Estimated Blood Loss: 5 mL. Postoperative Diagnoses: Presyncope, positive troponin, normal coronaries. Plan: Plan is for medical therapy. Anesthesia: Total conscious sedation was 45 minutes. The patient will remain at bedrest for 2 hours after the pharmaceutical laboratory technician. He will go home today and I will see him in the office in the next 2 weeks. I would like him to get a 7-day event monitor eventually. JAY/ALVARO Voice ID: [id number] Report ID: [id number]
[2021-11-11] MEDS ORDERED: ATORVASTATIN 40 MG TAB PO SCH (21:00)
--- NOTE | 2021-11-12 06:11 | SS ---
Date of Discharge: 11/11/2021 Chief Complaint: Dizziness and sweating. 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 He denies any chest pain or shortness of breath, but immediately he starte d to have profuse sweating and did not feel good at all and subsequently ambulance was called and he was brought into emergency room. No loss of consciousness. No chest pain. No heaviness, pressure o r tightness type of feeling. While he was in ambulance, he had episode of nausea, vomiting. After h e was evaluated in the ER, he was admitted to the hospital and he has not had any recurrence of his s ymptoms after his admission to the hospital. His first cardiac enzyme was slightly higher than betsy l. Second enzyme was within normal range and third and fourth enzymes were also slightly higher than normal range. His EKG did not show any acute changes. Allergies: TO AMOXICILLIN CAUSING NAUSEA AND VOMITING. Medications: Pravastatin 20 mg daily and fluticasone nasal spray 1 spray each nostril 2 times a day. Review of Systems: Cardiovascular: As mentioned above. Constitutional: As mentioned above. All other systems reviewed and negative. Past Medical History: Significant for hyperlipidemia, prostate cancer, allergic rhinitis. Past Surgical History: Appendectomy, prostatectomy on April 13, 2017 for prostate cancer, and back deluna rgery. Family History: Father had prostate cancer and diabetes and mother had Parkinson disease. Social History: Negative for smoking and alcohol use. Physical Examination: Vital Signs: Temperature 97.7, pulse 63, respiratory rate 16, blood pressure 122/68, oxygen saturati on 95% on room air. Height 6 feet 1 inch. Weight 180 pounds. General: Awake, alert, oriented, not in distress. HEENT: Head atraumatic, normocephalic. Conjunctivae nonerythematous. Sclerae white. Mouth, no thr ush or edema noted. Ears/Nose, no mass, lesion, discharge noted. Neck: Supple. No JVD, lymph nodes, bruit, thyromegaly noted. Lungs: Bilateral good equal air entry. Clear to auscultation. No rhonchi. No rales. Heart: Normal heart sounds, no murmur or gallop. Abdomen: Soft, bowel sounds normal. No guarding, rigidity, tenderness, mass, hepatosplenomegaly, dis tention, or bruit noted. Extremities: No leg edema. No calf tenderness. Skin: No rash, ulcer, cellulitis. Lymphatics: No lymph node enlargement in neck, supraclavicular, infraclavicular region. Neuro: No focal neurological deficit. Chest: Unremarkable. External Genitalia: Deferred. Rectal: Deferred. Laboratory Data: Yesterday, white count 3.5, hemoglobin 14.4, platelets 229. Today, white count 4.8 , hemoglobin 12.8, platelets 176. Yesterday, chemistry showed sodium 139, potassium 3.9, chloride 10 7, bicarb 28, BUN 19, creatinine 0.87, glucose 124. Liver function tests unremarkable. Troponin 63 on the first set, second set was 58.2, third set 62.4, and last set 65.20. This morning chem 7 was u nremarkable. Carotid Doppler was unremarkable. CT scan of the brain was negative for any acute intr acranial changes. Chest x-ray, no acute cardiopulmonary changes. COVID-19 test negative. Hospital Course: Patient was evaluated in the ER. He was admitted to the hospital. He was started on IV heparin drip and Cardiology consultation was requested from Dr. Welsh. Details were discusse d with Dr. Welsh this morning, and it was recommended patient to have cardiac cath, which patient a greed and Dr. Welsh did a cardiac cath today and informed me that his coronaries were normal, and f rom Cardiology point of view, patient was stable for discharge. Medically, he is stable for discharg e. Dr. Welsh will have his office contact patient to schedule Holter monitor on an outpatient [facility] s. Echocardiogram was ordered to be done today. We will follow up on the result on outpatient basis as well. Overall, patient's condition was stable. Discharge Medication And Instruction: 1.Continue all prior home medication. 2.Follow up at my office this week on , which is November 14, 2021, at 11 a.m. Final Diagnoses: 1.Non-ST elevation myocardial infarction. 2.Hyperlipidemia. 3.Prostate cancer. 4.Allergic rhinitis. CARLOS/MODL Voice ID: [id number] Report ID: [id number]
== END 2021-11-11 14:52 | disposition home or self-care (01) ==
LOC: ER 12:15 → ERHOLD 15:31 → INTOOBSV 15:31 → 2ND 20:56
PROVIDERS: ADMIT Internal Medicine; ATTEND Internal Medicine
PROC: B201YZZ Plain Radiography of Multiple Coronary Arteries using Other Contrast (ICD-10-PCS; principal; 2021-11-11)
DX: I21.4 Non-ST elevation (NSTEMI) myocardial infarction (principal); E78.5 Hyperlipidemia, unspecified; Z85.46 Personal history of malignant neoplasm of prostate; J30.9 Allergic rhinitis, unspecified; Z20.822 Contact with and (suspected) exposure to COVID-19
CPT/HCPCS: 36415; 70450; 71045; 80048; 80061; 80076; 82947; 83735; 83880; 84484; 85025; 85610; 85730; 93005; 93454; 93880; 96374; 99285; C1760; C1893; G0378; J0583; J1644; J2250; J3010; J7040; U0003

== ENCOUNTER 2023-08-24 12:16 | Emergency (ER) | payer OTHER ==
--- OUTSIDE RECORDS SUMMARY | 2023-08-24 12:20 | XMS REPORT | Continuity of Care Document ---
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 04[facility]13 [facility] Allergies, Adverse Reactions, Alerts Allergy Allergy Status Severity Reaction(s) Onset Inactive Treating Comm ents Source Name Type Date Date Clinician Hydrocod Propensi Active Nausea [facility]-Acet ty to Vomiting 04-03 [facility] aminophe adverse 00:00: Medical n reaction 00 [facility] Tramadol Propensi Active Nausea [facility] to [facility]omiting 04-03 [facility] adverse 00:00: Medical reaction 00 [place] Social History Social Habit Start Date Stop Date Quantity Comments Source Sexual orientation [facility] Alcohol intake 2017-04-14 2017-04-14 Current [facility] es 00:00:00 00:00:00 non-drinker of Medical Ce nter alcohol (finding) Tobacco use and 2017-04-03 2017-04-03 Smokeless tobacco [facility] exposure 00:00:00 00:00:00 non-user [facility] Sex Assigned At [birth year] [facility] 00:00:00 00:[facility]:00 [facility] Center Smoking Status Start Date Stop Date Source Never smoked tobacco [facility] Center Medications Ordered Filled Start Stop Current Ordering Indication Dosage Frequency Signature Comments Components Source Medication Medication Date Date Medication? Clinician (SIG) Name Name pravastatin Yes 20mg QD Take [address] [facility] (PRAVACHOL) 7-27 by mouth [facility] 20 MG 16:06: daily. Medical tablet 58 [place] coenzyme 2017-0 Yes 200mg QD Take [address] [facility] Q10 200 mg 7-27 mg by [facility] capsule 16:06: mouth Medical 58 daily. [place] pravastatin 0 Yes 20mg QD Take [address] [facility] (PRAVACHOL) 7-27 by mouth [facility] 20 MG 16:06: daily. Medical tablet 58 [place] coenzyme 2016-0 Yes 200mg QD Take [address] [facility] [address] Q10 200 mg 7-27 mg by [facility] capsule 16:06: mouth Medical 58 daily. [place] pravastatin Yes 20mg QD Take [address] [facility] (PRAVACHOL) 7-27 by mouth [facility] 20 MG 16:06: daily. Medical tablet 58 [place] coenzyme Yes 200mg QD Take [address] [facility] [address] Q10 200 mg 7-27 mg by [facility] capsule 16:06: mouth Medical 58 daily. [place] docusate Yes 100mg Q.5D Take [address] [facility] sodium 7-27 capsule [facility] (COLACE) 00:00: (100 mg Medica l 100 MG 00 total) by Center capsule mouth 2 (two) times daily. acetaminoph Yes 1{tbl} Take [address] en-codeine 7-27 tablet by [facility] (TYLENOL 00:00: mouth Medical #3) 300-30 00 every 4 Center mg per (four) tablet hours as needed for Pain Do not combine with over the counter Tylenol. Max Daily Amount: 6 tablets docusate Yes 100mg Q.5D Take [address] [facility] [address] sodium 7-27 capsule [facility] (COLACE) 00:00: (100 mg Medica l 100 MG 00 total) by Center capsule mouth 2 (two) times daily. acetaminoph Yes 1{tbl} Take [address] en-codeine 7-27 tablet by [facility] (TYLENOL 00:00: mouth Medical #3) 300-30 00 every 4 Center mg per (four) tablet hours as needed for Pain Do not combine with over the counter Tylenol. Max Daily Amount: 6 tablets docusate Yes 100mg Q.5D Take [address] [facility] [address] sodium 7-27 capsule [facility] (COLACE) 00:00: (100 mg Medica l 100 MG 00 total) by Center capsule mouth 2 (two) times daily. acetaminoph Yes 1{tbl} Take [address] en-codeine 7-27 tablet by [facility] (TYLENOL 00:00: mouth Medical #3) 300-30 00 every 4 Center mg per (four) tablet hours as needed for Pain Do not combine with over the counter Tylenol. Max Daily Amount: 6 tablets Procedures This patient has no known procedures. Results Test Description Test Time Test Comments Results Result [facility] e Comments TISSUE EXAM Surgical Pathology Report 2 Case: [id number] Authorizing 18:27:00 Provider: Ning Gonzalez MD Collected: 04/13/2017 [id number] Ordering Location: [facility] PERI[facility] Received: 04/13/2017 3815 SERVICES Pathologist: Trenton Caldwell MD Specimens: A) - Lymph Node, PERIPROSTATIC LYMPH NODES B) - Soft Tissue, Other, LEFT LATERAL PROSTATE MARGIN C) - Vas Deferens, Left, LEFT VAS DEFERENS D) - Lymph Node, LEFT EXTERNAL ILIAC LYMPH NODES E) - Lymph Node, left obturator F) - Lymph Node, left hypogastric [...] FIBROCONNECTIVE TISSUE - NO PROSTATIC GLANDS OR MALIGNANCY SEENC. VAS DEFERENS, LEFT, VASECTOMY: - NO PATHOLOGIC [...] MARGINS NEGATIVE SEMINAL VESICLES, ROBOTIC ASSISTED LAPAROSCOPIC PROSTATECTOMY: - NO PATHOLOGIC DIAGNOSIS Preliminary result electronically signed by Trenton Caldwell MD on 04/16/2017 at 4:54 PMSections show a dominant right peripheral zone cancer in the apical half of the gland. About 30% of this tumor is Jonh pattern 4. There is a smaller a better differentiated tumor in the left peripheral zone as well. Good preservation of the neurovascular [...] Histologic Type: Adenocarcinoma (acinar, not otherwise specified) Ethridge Pattern: Ethridge pattern Primary Pattern: Grade 3 Secondary Pattern: Grade 4 Tertiary Pattern: Not applicable Total Jonh Score: 7 Tumor Quantitation: Proportion (percentage) of Prostate Involved by Tumor Specify (%): 10 Tumor Quantitation: Tumor size (dominant nodule, if present) Greatest Dimension (mm): 15 mm Extraprostatic Extension: Not identified Seminal Vesicle Invasion (invasion of muscular wall required): Not identified Lymph-Vascular Invasion: Not Identified Perineural Invasion: Present Treatment Effect: Not identifiedMARGINS Margins: Margins uninvolved by invasive carcinomaLYMPH NODES Regional Lymph Nodes: Number of Lymph Nodes Examined: Specify number: 7 Number of Lymph Nodes Involved: None identifiedSTAGE (pTNM) Primary Tumor (pT): +pT2c: Bilateral disease Regional Lymph Nodes (pN): pN0: No regional lymph node metastasis Distant Metastasis (pM): Not applicableADDITIONAL FINDINGS Additional Pathologic Findings: Nodular prostatic [id number] x2, 54375 x4, 59289 x4, 41034, [id number] cancerA. Periprostatic lymph node; B. Left lateral prostate margin; C. Left vas deferens; D. Left external iliac lymph node; E. Left obturator lymph node; F. Left hypogastric lymph node; G. Right vas deferens; H. Right external iliac lymph node; I. Right obturator lymph node; J. Right hypogastric lymph node; [...] with the patient's name, medical record number, [id number], and consists of two tiny aquino-pink soft tissue pieces. Entirely submitted in [...] 4.5 x 3.3 x 1.0 cm aggregate of yellow-aquino adipose tissue. Sectioning reveals two pink-aquino to [...] follows: I1-I2, one bisected lymph node; I3-I6, remainder of specimen. Specimen J: Received fresh labeled "lymph [...] x 0.5 cm and 3.2 x 1.0 x 0.5 cm respectively. The right and left vasa deferentia measure 4.0 cm and 5.0 Cm in length respectively and 0.5 cm in diameter.The capsular surface of the prostate is purple-aquino to red, dusky, focally ragged.Ink code: Right-black, left-blue.The prostate is serially sectioned from apex to base into 9 slices to reveal pink-aquino to diaz-white, homogeneous, focally nodular prostatic parenchyma throughout. No discrete masses are identified. The prostate gland is entirely submitted.Sectioning of the seminal vesicles reveals a pink-aquino unremarkable cut surface.Section code: K1, prostate apex; K2, prostate base; K3-K7, prostate slices sequentially submitted progressing from apex to base; K8, right and left seminal vesicles; K9, seminal vesicle tips. DB/ewB1FS, LEFT LATERAL MARGIN, PROSTATE: - NO GLAND SEEN - NO TUMOR SEEN - THIS WAS COMMUNICATED TO OR18 BY DR. THORNE ON 04/06/2017 AT 6:40 P.M. A-KKimberlee Performed. BASIC METABOLIC PANEL 2017-04-15 06:32:00 Test Item Value Reference Range Interpretation Comme nts SODIUM (BEAKER) (test code 137 meq/L 136-145 = 381) POTASSIUM (BEAKER) (test 4.2 meq/L 3.5-5.1 code = 379) CHLORIDE (BEAKER) (test 106 meq/L 98-107 code = 382) CO2 (BEAKER) (test code = 25 meq/L 22-29 355) BLOOD UREA NITROGEN 11 mg/dL 7-21 (BEAKER) (test code = 354) CREATININE (BEAKER) (test 0.69 mg/dL 0.57-1.25 code = 358) GLUCOSE RANDOM (BEAKER) 118 mg/dL 70-105 H (test code = 652) CALCIUM (BEAKER) (test 7.8 mg/dL 8.4-10.2 L code = 697) EGFR (BEAKER) (test code = 114 mL/min/1.73 sq m ESTIMATED GFR IS NOT 1092) ACCURATE CRE ATININE CLEARANCE IN [place] EDICTING GLOMERULAR FILT RATION RATE. ESTIMATED GFR IS NOT APPLICABLE FOR DIALYSIS PATIENTS. CREATININE, BODY [id number] 06:09:00 Test Item Value Reference Range Interpretation Comments CREATININE FLUID (BEAKER) (test 0.68 mg/dL code = 677) Reference Range: No Normals Assay performance has not been validated for this type of specimen.CBC W/PLT COUNT & AUTO [id number] 06:02:00 Test Item Value Reference Range Interpretation [...] (BEAKER) (test code = 2801) BASIC METABOLIC [id number] 02:30:00 Test Item Value Reference Range Interpretation [...] FOR DIALYSIS PATIEN TS. Upon arrival to [facility] HILLEMOGLOBIN AND [id number] 01:42:00 Test Item Value Reference Range Interpretation Comments HEMOGLOBIN (BEAKER) (test code = 11.6 GM/DL 13.7-17.5 L 410) HEMATOCRIT (BEAKER) (test code = 34.8 % 40.1-51.0 L 411) POTASSIUM-STAT [id number] 19:29:00 Test Item Value Reference Range Interpretation Comments POTASSIUM (BEAKER) (test code = 3.9 meq/L 3.6-5.5 379) BLOOD GAS, [id number] 19:29:00 Test Item Value Reference Range Interpretation [...] (test code = 1819) 50.0 % GLUCOSE-STAT [id number] 19:29:00 Test Item Value Reference Range Interpretation Comments GLUCOSE RANDOM (BEAKER) (test code 167 mg/dL 70-110 H = 652) HGB/HCT (H&H) - STAT [id number] 19:29:00 Test Item Value Reference Range Interpretation Comments HEMOGLOBIN (BEAKER) (test code = 11.7 g/dL 13.0-16.8 L 410) HEMATOCRIT (BEAKER) (test code = 34.0 % 40.0-50.0 L 411) SODIUM NA-STAT [id number] 19:29:00 Test Item Value Reference Range Interpretation Comments SODIUM (BEAKER) (test code = 381) 139 meq/L 135-148 URINALYSIS W/ [id number] 11:39:00 Test Item Value Reference Range Interpretation [...] SOURCE(BEAKER) (test code Urine, Clean Catch = 7183) PLATELET [id number] 10:54:00 Test Item Value Reference Range Interpretation Comments PLATELET COUNT (BEAKER) (test 195 K/CU MM 150-450 code = 756) [id number] 16:26:00 Test Item Value Reference Range Interpretation Comments HEMOGLOBIN (BEAKER) (test code = 13.6 GM/DL 13.0-16.8 410) PLATELET [id number] 16:26:00 Test Item Value Reference Range Interpretation Comments PLATELET COUNT (BEAKER) (test 202 K/CU MM 150-430 code = 756)
--- NOTE | 2023-08-24 12:46 | RAD REPORT ---
EXAM DESCRIPTION: CT - Ct Stroke Brain Wo Cont - 08/24/2023 12:37 pm CLINICAL HISTORY: STROKE ALERT Headache, drowsiness, CVA COMPARISON: Head Brain Wo Cont dated 08/13/2023; Head Brain Wo Cont dated 11/10/2021 TECHNIQUE: All CT scans are performed using dose optimization technique as appropriate and may inclu de automated exposure control or mA/KV adjustment according to patient size. FINDINGS: No intracranial hemorrhage, hydrocephalus or extra-axial fluid collection.Mild generalized brain atrophy.No areas of brain edema or evidence of midline shift. The paranasal sinuses and mastoids are clear. The calvarium is intact. IMPRESSION: No acute intracranial abnormality. If there is continued clinical concern for CVA, MR imaging of the brain would be recommended. The findings were discussed with Dr. Edwards in the ER On 08/24/2023 at 12:33 p.m. by telephone.
--- NOTE | 2023-08-24 13:03 | RAD REPORT ---
EXAM DESCRIPTION: CT - Head angio - 08/24/2023 12:45 pm CLINICAL HISTORY: Aphasia;Confused Headache, drowsiness, CVA symptomology COMPARISON: Ct Stroke Brain Wo Cont dated 08/24/2023; Head Brain Wo Cont dated 08/13/2023 TECHNIQUE: CT angiography of the head was performed with MIPs. All CT scans are performed using dose optimization technique as appropriate and may include automated exposure control or mA/KV adjustment according to patient size. FINDINGS: No evidence of large vessel occlusion. No evidence of aneurysm is detected. No flow-limiti ng stenosis or vascular malformation identified. Antegrade flow is seen in the vertebral arteries. The left vertebral artery is dominant. The visualized dural venous sinuses are patent. IMPRESSION: No significant flow abnormality is detected.
--- NOTE | 2023-08-24 13:08 | RAD REPORT ---
EXAM DESCRIPTION: CT - Neck Angio - 08/24/2023 12:46 pm CLINICAL HISTORY: confusion Headache, drowsiness, CVA symptomology COMPARISON: No comparisons TECHNIQUE: CT angiography of the neck vessels was performed with MIPs. All CT scans are performed using dose optimization technique as appropriate and may include automated exposure control or mA/KV adjustment according to patient size. FINDINGS: A left aortic arch is identified with normal three vessel configuration of the great vesse ls. Moderate hard plaque is seen origin of left subclavian artery. No significant flow abnormality is seen of the common carotid bilaterally. No significant stenosis is identified involving the cervical segments of both internal carotid arteri es. There is small amount mixed plaque left carotid bulb. Normal flow is seen within both vertebral arteries. IMPRESSION: No significant flow abnormality of the neck vessels is identified. NASCET criteria used. Mild 0-49% stenosis Moderate 50-69% stenosis Severe 70-99% stenosis
[2023-08-24 13:18] LABS: Absolute Lymphocytes (CBC) 0.8 K/uL (0.7-4.9); Hematocrit 38.2 % (39.6-49.0); Lymphocytes % 16.7 % (15.3-44.8); MCV 93.5 fL (80-100); MPV 7.2 fL (7.6-11.3); Platelets 231 thou/uL (152-406); RBC Red Blood Cell Count 4.09 M/uL (4.33-5.43)
[2023-08-24] MEDS ORDERED: ASPIRIN 81 MG CHEWABLE TABLET ONE (13:22)
[2023-08-24] MEDS ORDERED: FOLIC ACID 1 MG TABLET ONE (13:22)
[2023-08-24 13:23] LABS: Protime INR 1.08
[2023-08-24 14:03] LABS: Albumin 3.4 g/dL (3.4-5.0); Bilirubin Direct 0.2 mg/dL (0-0.2); Bilirubin Indirect, Calculated 0.7 mg/dL (0.2-0.8); Bilirubin Total 0.9 mg/dL (0.2-1.0); Magnesium 2.1 mg/dL (1.6-2.4); Potassium 3.7 mEq/L (3.5-5.1); Protein, Total 6.6 g/dL (6.4-8.2); Troponin High Sensitivity 24.4 pg/mL (<58.9)
--- NOTE | 2023-08-24 14:04 | RAD REPORT ---
EXAM DESCRIPTION: RAD - Chest Single View - 08/24/2023 1:53 pm CLINICAL HISTORY: confusion Chest pain. COMPARISON: <Comparisons> FINDINGS: Portable technique limits examination quality. The lungs are grossly clear. The heart is normal in size. No displaced fractures. IMPRESSION: No acute intrathoracic process suspected.
--- NOTE | 2023-08-24 20:05 | EDPHYS ---
Physician Documentation [facility] Name: Ag Burnham Age: 73 yrs Sex: Male : 1950 Arrival Date: 08/24/2023 Time: 12:16 Bed 3 Private MD: ED Physician Dominik Edwards HPI: 08/24 12:34 This 73 yrs old Male presents to ER via Ambulatory with complaints of Confusion, S/S of snw Possible Stroke - Sent by . 12:34 Onset: The symptoms/episode began/occurred acutely. Associated signs and symptoms: snw Pertinent positives: pt had dental work on 08/10/23. 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 This morning at 1115, pt became confused, could not get words out, slurred speech. No muscular weakness, no facial droop. The patient has experienced a previous episode, approximately 2 weeks ago, placed on baby asa. The patient has been recently seen by a physician: the patient's primary care provider, Dr. Husain. 12:38 Duration: The episode is continuous, s/s completely resolved post 15min. snw Historical: - Allergies: 12:30 No Known Allergies; iw - PMHx: 12:30 Hypercholesterolemia; Prostate Cancer (Hypercholesterolemi); iw - PSHx: 12:30 back sx 2004 (ho); iw - Immunization history:: Adult Immunizations unknown. - Social history:: Smoking status: Patient denies any tobacco usage or history of. - Code Status:: Full code. ROS: 12:34 Constitutional: Negative for fever, chills, and weight loss, Eyes: Negative for injury, snw pain, redness, and discharge, ENT: Negative for injury, pain, and discharge, Neck: Negative for injury, pain, and swelling, Cardiovascular: Negative for chest pain, palpitations, and edema, Respiratory: Negative for shortness of breath, cough, wheezing, and pleuritic chest pain, Abdomen/GI: Negative for abdominal pain, nausea, vomiting, diarrhea, and constipation, Back: Negative for injury and pain, : Negative for injury, bleeding, discharge, and swelling, MS/Extremity: Negative for injury and deformity, Skin: Negative for injury, rash, and discoloration, Psych: Negative for depression, anxiety, suicide ideation, homicidal ideation, and hallucinations, 12:34 Neuro: Positive for speech changes, confusion, slight headache, Exam: 12:32 Constitutional: This is a well developed, well nourished patient who is awake, alert, snw and in no acute distress. Head/Face: Normocephalic, atraumatic. Eyes: Pupils equal round and reactive to light, extra-ocular motions intact. Lids and lashes normal. Conjunctiva and sclera are non-icteric and not injected. Cornea within normal limits. Periorbital areas with no swelling, redness, or edema. Neck: Trachea midline, no thyromegaly or masses palpated, and no cervical lymphadenopathy. Supple, full range of motion without nuchal rigidity, or vertebral point tenderness. No Meningismus. Chest/axilla: Normal chest wall appearance and motion. Nontender with no deformity. No lesions are appreciated. Cardiovascular: Regular rate and rhythm with a normal S1 and S2. No gallops, murmurs, or rubs. Normal PMI, no JVD. No pulse deficits. Respiratory: Lungs have equal breath sounds bilaterally, clear to auscultation and percussion. No rales, rhonchi or wheezes noted. No increased work of breathing, no retractions or nasal flaring. Abdomen/GI: Soft, non-tender, with normal bowel sounds. No distension or tympany. No guarding or rebound. No evidence of tenderness throughout. Back: No spinal tenderness. No costovertebral tenderness. Full range of motion. Skin: Warm, dry with normal turgor. Normal color with no rashes, no lesions, and no evidence of cellulitis. MS/ Extremity: Pulses equal, no cyanosis. Neurovascular intact. Full, normal range of motion. Neuro: Awake and alert, GCS 15, oriented to person, place, time, and situation. Cranial nerves II-XII grossly intact. Motor strength 5/5 in all extremities. Sensory grossly intact. Cerebellar exam normal. Normal gait. Psych: Awake, alert, with orientation to person, place and time. Behavior, mood, and affect are within normal limits. 12:32 ENT: External ear(s): are unremarkable, Dental exam: 08/10 had 4 teeth replaced, Voice: is normal, 12:37 Special observations: s/s resolved, snw 12:40 Radiologist reports: no large vessel disease, no aneurysm snw Vital Signs: 13:31 BP 135 / 89; Pulse 67; Resp 18; Pulse Ox 98% on R/A; ph 14:58 BP 133 / 80; Pulse 70; Resp 18; Temp 97.8; Pulse Ox 100% on R/A; ph 15:44 BP 127 / 76; Pulse 61; Resp 18; Pulse Ox 100% on R/A; ph 16:28 BP 128 / 81; Pulse 66; Resp 18; Pulse Ox 99% ; ko1 18:14 BP 133 / 86; Pulse 78; Resp 18; Pulse Ox 100% on R/A; ph 19:30 BP 125 / 83; Pulse 72; Resp 16; Temp 98.0; Pulse Ox 96% on R/A; Pain 0/10; la4 20:18 BP 136 / 81 LA; Pulse 70 MON; Resp 21 S; Temp 98.1(O); Pulse Ox 97% on R/A; Pain 0/10; la4 19:30 Pain Scale: Adult la4 20:18 Pain Scale: Adult la4 NIH Stroke Scale Scores: 12:32 NIHSS Score: 0 snw 13:10 NIHSS Score: 0 ph [place] Coma Score: 12:32 Eye Response: spontaneous(4). Motor Response: obeys commands(6). Verbal Response: snw oriented(5). Total: 15. 20:18 Eye Response: spontaneous(4). Motor Response: obeys commands(6). Verbal Response: la4 oriented(5). Total: 15. MDM: 12:29 Patient medically screened. snw 12:36 Differential diagnosis:. snw 12:37 Differential diagnosis: CVA, TIA, metabolic disorder, sepsis. Data reviewed: vital snw signs, nurses notes, lab test result(s), EKG, radiologic studies. 20:08 Management of patient was discussed with the following: Logistics Team Lead: Dr. Husain and Dr. brandon Estrada. small vessel disease, recommendation for asa and plavix, folic acid, and continuation of statin. Remain well hydrated. I considered the following discharge prescriptions or medication management in the emergency department Medications were administered in the Emergency Department. See MAR. Counseling: I had a detailed discussion with the patient and/or guardian regarding the historical points, exam findings, and any diagnostic results supporting the discharge/admit diagnosis, lab results, radiology results, the need for outpatient follow up, for definitive care, to return to the emergency department if symptoms worsen or persist or if there are any questions or concerns that arise at home. Special discussion: Based on the history and exam findings, there is no indication for further emergent testing or inpatient evaluation. I discussed with the patient/guardian the need to see the neurologist for further evaluation of the symptoms. I discussed with the patient/guardian the need to see the primary care provider for further evaluation of the symptoms. 08/24 12:32 Order name: Basic Metabolic Panel; Complete Time: 14:04 snw 08/24 12:32 Order name: CBC with Diff; Complete Time: 13:21 snw 08/24 12:32 Order name: LFT's; Complete Time: 14:04 snw 08/24 12:32 Order name: Magnesium; Complete Time: 14:04 snw 08/24 12:32 Order name: NT PRO-BNP; Complete Time: 14:04 snw 08/24 12:32 Order name: PT-INR; Complete Time: 13:25 snw 08/24 12:32 Order name: Troponin HS; Complete Time: 14:04 snw 08/24 12:32 Order name: Ptt, Activated; Complete Time: 13:25 snw 08/24 12:37 Order name: Blood Culture Adult (2) snw 08/24 12:37 Order name: Lactate w/ 2H reflex if indic.; Complete Time: 13:51 snw 08/24 13:39 Order name: CREATININE WHOLE BLOOD; Complete Time: 13:51 EDMS 08/24 12:32 Order name: XRAY Chest (1 view); Complete Time: 14:14 snw 08/24 12:32 Order name: CT Head Angio; Complete Time: 13:21 snw 08/24 12:32 Order name: CT Neck Angio; Complete Time: 13:21 snw 08/24 12:32 Order name: CT Stroke Brain w/o Contrast; Complete Time: 12:49 snw 08/24 12:32 Order name: EKG; Complete Time: 12:33 snw 08/24 12:32 Order name: Cardiac monitoring; Complete Time: 13:06 snw 08/24 12:32 Order name: EKG - Nurse/Tech; Complete Time: 13:24 snw 08/24 12:32 Order name: IV Saline Lock; Complete Time: 13:06 snw 08/24 12:32 Order name: Labs collected and sent; Complete Time: 13:13 snw 08/24 12:32 Order name: O2 Per Protocol; Complete Time: 13:05 snw 08/24 12:32 Order name: O2 Sat Monitoring; Complete Time: 13:05 snw 08/24 12:32 Order name: Accucheck; Complete Time: 14:00 snw 08/24 12:32 Order name: NPO; Complete Time: 13:13 snw 08/24 12:32 Order name: Stroke Swallow Screen; Complete Time: 13:13 snw 08/24 13:26 Order name: Labs - recollect needed: LIGFHT GREEN TUBE; Complete Time: 13:52 hb EC:20 Rate is 65 beats/min. Rhythm is regular. QRS [place] is Normal. NE interval is normal. QRS snw interval is normal. QT interval is normal. Clinical impression: Abnormal EKG without significant change. Administered Medications: 13:13 Drug: Aspirin PO Chewable Tablet 324 mg PO once; 81 mg tablets x 4 Route: PO; ko1 13:53 Follow up: Response: No adverse reaction ko1 13:13 Drug: foLIC Acid PO 1 mg PO once Route: PO; ko1 13:53 Follow up: Response: No adverse reaction ko1 20:10 Follow up: Response: No adverse reaction la4 20:25 Drug: Clopidogrel PO 75 mg PO once Route: PO; la4 Disposition Summary: 08/24/23 20:05 Discharge Ordered Notes: Please continue statin and 81mg aspirin daily Location: Home snw Condition: Stable snw Diagnosis - Transient cerebral ischemic attack, unspecified snw Followup: snw - With: Emergency Department - When: As needed - Reason: Worsening of condition Followup: snw - With: Private Physician - When: Tomorrow - Reason: Recheck today's complaints, Continuance of care, Re-evaluation by your physician Discharge Instructions: - Discharge Summary Sheet snw - Stroke Prevention snw - Transient Ischemic Attack snw - Rehydration, Elderly snw Forms: - Medication Reconciliation Form snw - Thank You Letter snw - Antibiotic Education snw - Prescription Opioid Use snw - Patient Portal Instructions snw - Leadership Thank You Letter snw Prescriptions: - Plavix 75 mg Oral Tablet - take 1 tablet ORAL route once daily; 20 tablet; Refills: 0, Product Selection [facility] Permitted - Folic Acid 1 mg Oral Tablet - take 1 tablet ORAL route once daily; 30 tablet; Refills: 0, Product Selection [facility] Permitted NIH Stroke Scale - NIH Stroke Score Date: 08/24/2023 Time: 12:32 Total Score = 0 10. Dysarthria (speech clarity - read or repeat words) - 0(Normal) 11. Extinction and Inattention (visual/tactile/auditory/spatial/personal) - 0(No abnormality) 1a. Level of Consciousness (LOC) - 0(Alert) 1b. Level of Consciousness (LOC) (Month \T\ Age) - 0(Both) 1c. LOC Commands (Open \T\ Closes Eyes/Print Washer) - 0(Both) 2. Best Gaze (Lateral Gaze Paresis) - 0(Normal) 3. Visual Field Loss - 0(No visual loss) 4. Facial Palsy - 0(Normal) 5a. Left Arm: Motor (10-second hold) - 0(No drift) 5b. Right Arm: Motor (10-second hold) - 0(No drift) 6a. Left Leg: Motor (5-second hold - always test supine) - 0(No drift) 6b. Right Leg: Motor (5-second hold - always test supine) - 0(No drift) 7. Limb Ataxia (finger/nose \T\ heel/[place] - test with eyes open) - 0(Absent) 8. Sensory Loss (pinprick arms/legs/face) - 0(Normal) 9. Best Language: Aphasia (description/naming/reading) - 0(No aphasia) Initials: [facility] NIH Stroke Scale - NIH Stroke Score Date: 08/24/2023 Time: 13:10 Total Score = 0 10. Dysarthria (speech clarity - read or repeat words) - 0(Normal) 11. Extinction and Inattention (visual/tactile/auditory/spatial/personal) - 0(No abnormality) 1a. Level of Consciousness (LOC) - 0(Alert) 1b. Level of Consciousness (LOC) (Month \T\ Age) - 0(Both) 1c. LOC Commands (Open \T\ Closes Eyes/Print Washer) - 0(Both) 2. Best Gaze (Lateral Gaze Paresis) - 0(Normal) 3. Visual Field Loss - 0(No visual loss) 4. Facial Palsy - 0(Normal) 5a. Left Arm: Motor (10-second hold) - 0(No drift) 5b. Right Arm: Motor (10-second hold) - 0(No drift) 6a. Left Leg: Motor (5-second hold - always test supine) - 0(No drift) 6b. Right Leg: Motor (5-second hold - always test supine) - 0(No drift) 7. Limb Ataxia (finger/nose \T\ heel/[place] - test with eyes open) - 0(Absent) 8. Sensory Loss (pinprick arms/legs/face) - 0(Normal) 9. Best Language: Aphasia (description/naming/reading) - 0(No aphasia) Initials: Addendum: 08/26/2023 13:35 Co-signature as Attending Physician, Dominik Edwards MD I reviewed the patient's rn care provided by the Advanced Practice Provider and agree with the diagnosis and treatment plan. Signatures: Dispatcher [employer] Gabrielle Castellon, RUBBER COVERING MACHINE OPERATOR-C RUBBER COVERING MACHINE OPERATOR-Csnw Shanita Butler, RN Dominik Magallon MD MD rn Hall, Patricia, RN RN ph Baxter, Heather, RN Alana Duarte, RN RN aman1 Truong Shetty, RN ANNELIESE la4
--- NOTE | 2023-08-24 20:05 | ER ---
Nurse's Notes [facility] [place] Name: Ag Burnham Age: 73 yrs Sex: Male : 1950 Arrival Date: 08/24/2023 Time: 12:16 Bed 3 Private MD: Diagnosis: Transient cerebral ischemic attack, unspecified Presentation: 08/24 12:28 Chief complaint: Patient states: was at dentist office , had about 15 minutes of iw confusion, he could not find the right words, he forgot a friend's name, could not complete sentences , the symptoms have resolved now , started at 11:15 until 11:30. Coronavirus screen: At this time, the client does not indicate any symptoms associated with coronavirus-19. Ebola Screen: Patient negative for fever greater than or equal to 101.5 degrees Fahrenheit, and additional compatible Ebola Virus Disease symptoms Patient denies exposure to infectious person. Patient denies travel to an Ebola-affected area in the 21 days before illness onset. No symptoms or risks identified at this time. Initial Sepsis Screen: Does the patient have a suspected source of infection?. Risk Assessment: Do you want to hurt yourself or someone else? Patient reports no desire to harm self or others. Onset of symptoms was August 24, 2023. 12:28 Method Of Arrival: Ambulatory iw 12:28 Acuity: PATY 2 iw 13:31 No acute neurological deficit is noted. Pre-hospital glucose is not applicable to this ph patient. Initial Sepsis Screen: Does the patient meet any 2 criteria? No. Patient's initial sepsis screen is negative. Stroke Activation: Symptom onset < 3 hours Physician: Stroke Attending; Name: ; Notified At: ; Arrived At: Physician: Chief Stroke Resident; Name: ; Notified At: ; Arrived At: Physician: Stroke Resident; Name: ; Notified At: ; Arrived At: Physician: ED Attending; Name: ; Notified At: ; Arrived At: Physician: ED Resident; Name: ; Notified At: ; Arrived At: Historical: - Allergies: 12:30 No Known Allergies; iw - PMHx: 12:30 Hypercholesterolemia; Prostate Cancer (Hypercholesterolemi); iw - PSHx: 12:30 back sx 2004 (ho); iw - Immunization history:: Adult Immunizations unknown. - Social history:: Smoking status: Patient denies any tobacco usage or history of. - Code Status:: Full code. Screenin:31 [facility] ED Fall Risk Assessment (Adult) History of falling in the last 3 months, ph including since admission No falls in past 3 months (0 pts) Confusion or Disorientation No (0 pts) Intoxicated or Sedated No (0 pts) Impaired Gait No (0 pts) Mobility Assist Device Used No (0 pt) Altered Elimination No (0 pt) Score/Fall Risk Level 0 - 2 = Low Risk Oriented to surroundings, Maintained a safe environment, Provided non-skid footwear, Hourly rounding (assess needs \T\ fall precautionary measures) done. Abuse screen: Denies threats or abuse. Has been threatened or abused. Nutritional screening: No deficits noted. Tuberculosis screening: No symptoms or risk factors identified. Assessment: 13:10 VAN Scoring: Arm Drift: Patients demonstrates NO arm weakness. Patient is VAN Negative. ph Luz Swallow Protocol Brief Cognitive Screen What is your name? Normal, Where are you right now? Normal, What year is it? Normal. Oral Mechanism Examination Facial Symmetry: Normal, Motion: Normal, Lip Closure: Normal, Oral Mechanism Result: Normal. 3 oz Water Swallow Challenge: Pt able to drink all water without stopping, coughing, choking or throat clearing: Yes Result: PASS. General: Appears in no apparent distress. comfortable, well groomed, Behavior is calm, cooperative, appropriate for age, Reports feeling ill for 2-3 days, fatigue for. Pain: Denies pain. Neuro: Level of Consciousness is awake, alert, obeys commands, Oriented to person, place, time, situation. Cardiovascular: Reports fatigue, Denies chest pain, Capillary refill < 3 seconds in bilateral fingers Patient's skin is warm and dry. Respiratory: Airway is patent Respiratory effort is even, unlabored, Respiratory pattern is regular, symmetrical. GI: No signs and/or symptoms were reported involving the gastrointestinal system. Derm: Skin is pink, warm \T\ dry. Musculoskeletal: Circulation, motion, and sensation intact. Range of motion: intact in all extremities. 15:44 Reassessment: Patient appears in no apparent distress at this time. Patient and/or ph family updated on plan of care and expected duration. Pain level reassessed. Patient is alert, oriented x 3, equal unlabored respirations, skin warm/dry/pink. 20:00 General: Appears in no apparent distress. Behavior is calm, cooperative, appropriate la4 for age, Reports feeling better than upon his arrival to the ED. 20:00 Pain: Denies pain. Neuro: No deficits noted. Rivera Agitation-Sedation Scale (RASS): la4 0 - Alert and Calm Level of Consciousness is awake, alert, obeys commands, Oriented to person, place, time, situation, Able to recall incidents leading to his arrival to the ED. Manager Merchandising are equal bilaterally Moves all extremities. Gait is steady, Speech is normal, Facial symmetry appears normal, Pupils are PERRLA, Intact. Cardiovascular: No deficits noted. Reports None Capillary refill < 3 seconds is brisk in bilateral fingers Patient's skin is warm and dry. Rhythm is regular. Respiratory: No deficits noted. Respiratory pattern is regular, symmetrical. Vital Signs: 13:31 BP 135 / 89; Pulse 67; Resp 18; Pulse Ox 98% on R/A; ph 14:58 BP 133 / 80; Pulse 70; Resp 18; Temp 97.8; Pulse Ox 100% on R/A; ph 15:44 BP 127 / 76; Pulse 61; Resp 18; Pulse Ox 100% on R/A; ph 16:28 BP 128 / 81; Pulse 66; Resp 18; Pulse Ox 99% ; ko1 18:14 BP 133 / 86; Pulse 78; Resp 18; Pulse Ox 100% on R/A; ph 19:30 BP 125 / 83; Pulse 72; Resp 16; Temp 98.0; Pulse Ox 96% on R/A; Pain 0/10; la4 20:18 BP 136 / 81 LA; Pulse 70 MON; Resp 21 S; Temp 98.1(O); Pulse Ox 97% on R/A; Pain 0/10; la4 19:30 Pain Scale: Adult la4 20:18 Pain Scale: Adult la4 Vitals: 14:58 Cardiac Rhythm Assessment Sinus rhythm. ph [place] Coma Score: 12:32 Eye Response: spontaneous(4). Motor Response: obeys commands(6). Verbal Response: snw oriented(5). Total: 15. 20:18 Eye Response: spontaneous(4). Motor Response: obeys commands(6). Verbal Response: la4 oriented(5). Total: 15. NIH Stroke Scale Scores: 12:32 NIHSS Score: 0 snw 13:10 NIHSS Score: 0 ph ED Course: 12:19 Patient arrived in ED. im 12:23 Gabrielle Mcqueen [facility]C [facility] snw 12:23 Dominik Edwards MD is Attending Physician. snw 12:30 Triage completed. iw 12:37 CT Stroke Brain w/o Contrast In Process Unspecified. EDMS 12:47 CT Head Angio In Process Unspecified. EDMS 12:47 Haylee Ferguson, RN is Primary Nurse. ph 12:48 CT Neck Angio In Process Unspecified. EDMS 13:05 Inserted saline lock: 22 gauge in right antecubital area, using aseptic technique. ph Blood collected. 13:10 Initial lab(s) drawn, by me, sent to lab. First set of blood cultures drawn by ga, ph Second set of blood cultures drawn by me. 13:13 Basic Metabolic Panel Sent. ko1 13:13 CBC with Diff Sent. ko1 13:13 LFT's Sent. ko1 13:13 Magnesium Sent. ko1 13:13 NT PRO-BNP Sent. ko1 13:13 PT-INR Sent. ko1 13:13 Troponin HS Sent. ko1 13:13 Lactate w/ 2H reflex if indic. Sent. ko1 13:13 Blood Culture Adult (2) Sent. ko1 13:13 Ptt, Activated Sent. ko1 13:32 Arm band placed on Patient placed in an exam room, on panel monitor, on pulse ph oximetry. 13:32 Patient has correct armband on for positive identification. Bed in low position. Call ph light in reach. monitoring engineer on. Pulse ox on. NIBP on. Door closed. Noise minimized. Warm blanket given. 13:55 XRAY Chest (1 view) In Process Unspecified. EDMS 20:18 No provider procedures requiring assistance completed. IV discontinued, intact, la4 bleeding controlled, No redness/swelling at site. Pressure dressing applied. 20:18 Provided Education on: New medication, plan of care for discharge and follow up w/ Dr. caitlin Husain in office, When to return to ED for change in condition or other concerns. Administered Medications: 13:13 Drug: Aspirin PO Chewable Tablet 324 mg PO once; 81 mg tablets x 4 Route: PO; ko1 13:53 Follow up: Response: No adverse reaction ko1 13:13 Drug: foLIC Acid PO 1 mg PO once Route: PO; ko1 13:53 Follow up: Response: No adverse reaction ko1 20:10 Follow up: Response: No adverse reaction la4 20:25 Drug: Clopidogrel PO 75 mg PO once Route: PO; la4 Medication: 13:31 VIS not applicable for this client. ph Outcome: 20:05 Discharge ordered by . snw 20:18 Discharged to home ambulatory, with significant other, la4 20:18 Condition: improved 20:18 Discharge instructions given to patient, significant other, 20:41 Patient left the ED. la4 NIH Stroke Scale - NIH Stroke Score Date: 08/24/2023 Time: 12:32 Total Score = 0 10. Dysarthria (speech clarity - read or repeat words) - 0(Normal) 11. Extinction and Inattention (visual/tactile/auditory/spatial/personal) - 0(No abnormality) 1a. Level of Consciousness (LOC) - 0(Alert) 1b. Level of Consciousness (LOC) (Month \T\ Age) - 0(Both) 1c. LOC Commands (Open \T\ Closes Eyes/Health Care Analyst) - 0(Both) 2. Best Gaze (Lateral Gaze Paresis) - 0(Normal) 3. Visual Field Loss - 0(No visual loss) 4. Facial Palsy - 0(Normal) 5a. Left Arm: Motor (10-second hold) - 0(No drift) 5b. Right Arm: Motor (10-second hold) - 0(No drift) 6a. Left Leg: Motor (5-second hold - always test supine) - 0(No drift) 6b. Right Leg: Motor (5-second hold - always test supine) - 0(No drift) 7. Limb Ataxia (finger/nose \T\ heel/[place] - test with eyes open) - 0(Absent) 8. Sensory Loss (pinprick arms/legs/face) - 0(Normal) 9. Best Language: Aphasia (description/naming/reading) - 0(No aphasia) Initials: snw NIH Stroke Scale - NIH Stroke Score Date: 08/24/2023 Time: 13:10 Total Score = 0 10. Dysarthria (speech clarity - read or repeat words) - 0(Normal) 11. Extinction and Inattention (visual/tactile/auditory/spatial/personal) - 0(No abnormality) 1a. Level of Consciousness (LOC) - 0(Alert) 1b. Level of Consciousness (LOC) (Month \T\ Age) - 0(Both) 1c. LOC Commands (Open \T\ Closes Eyes/Health Care Analyst) - 0(Both) 2. Best Gaze (Lateral Gaze Paresis) - 0(Normal) 3. Visual Field Loss - 0(No visual loss) 4. Facial Palsy - 0(Normal) 5a. Left Arm: Motor (10-second hold) - 0(No drift) 5b. Right Arm: Motor (10-second hold) - 0(No drift) 6a. Left Leg: Motor (5-second hold - always test supine) - 0(No drift) 6b. Right Leg: Motor (5-second hold - always test supine) - 0(No drift) 7. Limb Ataxia (finger/nose \T\ heel/[place] - test with eyes open) - 0(Absent) 8. Sensory Loss (pinprick arms/legs/face) - 0(Normal) 9. Best Language: Aphasia (description/naming/reading) - 0(No aphasia) Initials: ph Signatures: Dispatcher [employer] EDMS Gabrielle Mcqueen, MEDICAL ASSISTANT DERMATOLOGY-C MEDICAL ASSISTANT DERMATOLOGY-Csnw Shanita Butler, RN Haylee Quezada RN RN ph Oliver, Kathy, RN RN aman1 Obdulia Elizabeth La'Rea, RN RN [email or web address]
[2023-08-24] MEDS ORDERED: CLOPIDOGREL 75 MG TABLET ONE (20:27)
[2023-08-24 22:35] VITALS: TEMP 98.1
[2023-08-24 22:55] VITALS: BP 128/81; O2SAT 99
--- NOTE | 2023-08-25 13:29 | EKG ---
Test Date: 2023-08-24 Test Time: 13:20:47 [employer]: PH MEASUREMENT RESULTS: Intervals: Rate: 65 ID: [id number] QRSD: 110 QT: 440 QTc: 457 [place]: P: 69 ID: [id number] QRS: -17 T: 52 INTERPRETIVE STATEMENTS: Normal sinus rhythm Possible Left atrial enlargement Incomplete right bundle branch block Nonspecific ST abnormality Abnormal ECG Compared to ECG 11/10/2021 19:57:06 Incomplete right bundle-branch block now present ST (T wave) deviation now present First degree AV block no longer present T-wave abnormality no longer present Electronically Signed On 08-25-23 13:26:54 AGRONOMIST by Chaka Quiles
== END 2023-08-24 20:41 | disposition home or self-care (01) ==
LOC: ER 12:16
DX: G45.9 Transient cerebral ischemic attack, unspecified (principal); E78.00 Pure hypercholesterolemia, unspecified
CPT/HCPCS: 93005; 87040 ×2; 85025; 80048; 36415; 83735; 85610; 82565; 80076; 83605; 85730; 84484; 83880; 70496; 70498; 70450; 71045; 99285; Q9967